=== PATIENT | female | born 1945 | race Caucasian/White ===

== ENCOUNTER 2021-11-14 05:25 | Day surgery (SDC) | payer OTHER ==
[~2021-11-14] VITALS: Ht 157.5 cm; Wt 66.7 kg
[2021-11-14] MEDS ORDERED: CLINDAMYCIN 600 mg/50mL D5W 50 ML IV ONE (07:00)
[2021-11-14] MEDS ORDERED: ACETAMINOPHEN I.V. 1000 MG 100 ML IV ONE (07:15)
[2021-11-14] MEDS ORDERED: ROCURONIUM BROMIDE 10 MG/ML (ZEMURON) ONE (07:47)
[2021-11-14] MEDS ORDERED: ONDANSETRON HCL 4 MG/2 ML VIAL ONE (07:47)
[2021-11-14] MEDS ORDERED: DESFLURANE 15 MIN GAS INH ONE (07:47)
[2021-11-14] MEDS ORDERED: PROPOFOL 200MG/ 20ML VIAL (DIPRIVAN) IV ONE (07:47)
[2021-11-14] MEDS ORDERED: NS 1000 ML IV.SOLN IV ONE (07:47)
[2021-11-14] MEDS ORDERED: DEXAMETHASONE SOD PHOSPHATE 4 MG/ML VIAL ONE (07:47)
[2021-11-14] MEDS ORDERED: MIDAZOLAM HCL 2 MG/2 ML VIAL (VERSED) ONE (07:47)
[2021-11-14] MEDS ORDERED: fentaNYL CITRATE/PF 100 MCG/2 ML AMP ONE (07:47)
[2021-11-14] MEDS ORDERED: KETOROLAC TROMETHAMINE 30 MG VIAL ONE (07:47)
[2021-11-14] MEDS ORDERED: SUGAMMADEX SODIUM 200 MG/2 ML VIAL IV ONE (07:47)
[2021-11-14] MEDS ORDERED: BUPIVACAINE /EPINEPHRINE/PF 0.25% 30 ML VIAL INJ ONE (07:47)
[2021-11-14] MEDS ORDERED: LR 1,000 ML IV.SOLN IV ONE (07:47)
[2021-11-14] MEDS ORDERED: NS IRRIG SOLN 1000 ML IR ONE (07:47)
[2021-11-14] MEDS ORDERED: METOCLOPRAMIDE HCL 10 MG/2 ML VIAL IVP PRN (08:30)
[2021-11-14] MEDS ORDERED: LR 1,000 ML IV SCH (08:30)
[2021-11-14] MEDS ORDERED: MEPERIDINE HCL/PF 25 MG/ML DISP.SYRIN IVP PRN (08:30)
[2021-11-14] MEDS ORDERED: hydrALAZINE HCL 20 MG/ML VIAL IVP PRN (08:30)
[2021-11-14] MEDS ORDERED: HYDROmorphone 1 MG/ML INJ. CARTRIDGE IVP PRN ×2 (08:30)
[2021-11-14] MEDS ORDERED: LABETALOL 100 MG/ 20ML VIAL IVP PRN (08:30)
[2021-11-14] MEDS ORDERED: IBUPROFEN 800 MG TABLET PO PRN (09:45)
[2021-11-14] MEDS ORDERED: ONDANSETRON HCL 4 MG/2 ML VIAL IM PRN (09:45)
[2021-11-14] MEDS ORDERED: OXYCODONE/ACETAMINOPHEN 5-325 TABLET PO PRN ×2 (09:45)
[2021-11-14 10:35] VITALS: BP_SYST 132
== END 2021-11-14 12:30 | disposition home or self-care (01) ==
LOC: SDS 05:25 → SMU 05:25 → SDS 12:30
PROVIDERS: ATTEND Obstetrics & Gynecology
DX: N83.201 Unspecified ovarian cyst, right side (principal); N94.89 Other specified conditions associated with female genital organs and menstrual cycle; E78.5 Hyperlipidemia, unspecified; Z98.890 Other specified postprocedural states; Z79.899 Other long term (current) drug therapy; Z20.822 Contact with and (suspected) exposure to COVID-19
CPT/HCPCS: 36415 ×2; 58661; 87426; 87635; 88307; C1727; C1782; J0131; J1100; J1885; J1956; J2405; J2704; J3010; J3465; J3490 ×3; J7030; J7120; U0003; 88305